=== PATIENT | male | born 1970 | race Caucasian/White ===

== ENCOUNTER 2020-05-27 11:11 | Day surgery (SDC) | payer OTHER ==
[2020-05-25 14:55] LABS: COVID AG,FIA SOURCE NASOPHARYNGEAL
[~2020-05-27 11:11] MED LIST: SODIUM CHLORIDE 0.9% 1,000 ML ONE
[2020-05-27] MEDS ORDERED: PROPOFOL 1% 20 ML VIAL IVP ONE (11:12)
[2020-05-27] MEDS ORDERED: SODIUM CHLORIDE 0.9% 1,000 ML IV ONE (11:30)
[2020-05-27] MEDS ORDERED: OXYGEN THERAPY IH SCH (20:00)
== END 2020-05-27 14:54 | disposition home or self-care (01) ==
LOC: SURGERY 11:11
PROVIDERS: ATTEND Specialist
DX: K62.6 Ulcer of anus and rectum (principal); K57.30 Diverticulosis of large intestine without perforation or abscess without bleeding; K29.50 Unspecified chronic gastritis without bleeding; D12.4 Benign neoplasm of descending colon; K63.89 Other specified diseases of intestine; K62.89 Other specified diseases of anus and rectum; K64.9 Unspecified hemorrhoids; K20.90 Esophagitis, unspecified without bleeding; K44.9 Diaphragmatic hernia without obstruction or gangrene; F17.210 Nicotine dependence, cigarettes, uncomplicated; K21.9 Gastro-esophageal reflux disease without esophagitis; J44.9 Chronic obstructive pulmonary disease, unspecified; G89.29 Other chronic pain; F43.10 Post-traumatic stress disorder, unspecified; Z98.890 Other specified postprocedural states; Z72.89 Other problems related to lifestyle; Z79.899 Other long term (current) drug therapy; F31.9 Bipolar disorder, unspecified
CPT/HCPCS: 45380; 43239; 87426; C1769; C9803; J2704; J7030; 88305; 88312; 88313

== ENCOUNTER 2021-09-22 16:53 | Inpatient (IN) | payer MEDICAID ==
[~2021-09-22] VITALS: Ht 188 cm; Wt 134.9 kg
[2021-09-22] MEDS ORDERED: ZOLPIDEM TARTRATE 10 MG TABLET PO PRN (22:30)
[2021-09-22] MEDS ORDERED: HALOPERIDOL 5 MG TABLET PO PRN (22:30)
[2021-09-22] MEDS ORDERED: PNEUMOCOCCAL VACCINE POLYVALENT 0.5 ML VIAL [PPSV23] IM. ONE (23:15)
[2021-09-23 00:28] VITALS: BP 130/87
[2021-09-23] MEDS: LORazepam 2 MG TABLET PO PRN (03:23)
[2021-09-23 07:18] LABS: HEMOGLOBIN A1C 5.9 % (3.8-5.6)
[2021-09-23 07:30] LABS: ALANINE AMINOTRANSFERASE 35 U/L (12-78); ALBUMIN 3.8 g/dL (3.4-5.0); ALKALINE PHOSPHATASE 103 U/L (46-116); ANION GAP 8 mmol/L (8-16); ASPARTATE AMINOTRANSFERASE 21 U/L (15-37); BILIRUBIN,TOTAL 0.4 mg/dL (0.1-1.0); CALCIUM, TOTAL 8.8 mg/dL (8.8-10.5); CARBON DIOXIDE 28 mmol/L (22-29); CHLORIDE 98 mmol/L (98-107); CHOL/HDL RATIO 4.9 (4.2-7.3); CHOLESTEROL 142 mg/dL (131-200); FREE T4 (FREE THYROXINE) 1.23 ng/dL (0.76-1.46); GLUCOSE,RANDOM 96 mg/dL (70-110); HDL CHOLESTEROL 29 mg/dL (40-60); LDL CHOL (CALC.) 78 mg/dL (0-130); POTASSIUM 3.8 mmol/L (3.5-5.1); SODIUM SERUM 134 mmol/L (136-145); THYROID STIMULATING HORMONE 1.56 uIU/mL (0.36-3.74); TOTAL PROTEIN, SERUM 7.3 g/dL (6.4-8.2); TRIGLYCERIDES 175 mg/dL (15-150); UREA NITROGEN, BLOOD 13 mg/dL (7-18)
[2021-09-23 07:33] LABS: BASOPHILS % (AUTO) 0.4 % (0.0-2.0); EOSINOPHILS % (AUTO) 2.8 % (1.0-6.0); HEMATOCRIT 44.1 % (41-53); LYMPHOCYTES # (AUTO) 1.3 K/uL (1.0-4.8); LYMPHOCYTES % (AUTO) 22.7 % (22.0-44.0); MEAN CORPUSCULAR HEMOGLOBIN 27.2 pg (26.0-34.0); MEAN CORPUSCULAR HGB CONC 33.9 G/dL (31.0-37.0); MEAN CORPUSCULAR VOLUME 80 fL (80-100); MONOCYTES # (AUTO) 0.8 K/uL (0.1-1.0); MONOCYTES % (AUTO) 13.5 % (2.0-9.0); NEUTROPHILS # (AUTO) 3.5 K/uL (1.8-7.7); NEUTROPHILS % (AUTO) 60.6 % (40.0-70.0); PLATELET COUNT (AUTO) 202 K/uL (150-450); RED BLOOD CELL COUNT(AUTO) 5.51 MIL/uL (4.50-5.90); RED CELL DISTRIBUTION WIDTH 15.9 % (11.5-14.5)
[2021-09-23 07:34] LABS: GLOMERULAR FILTR. RATE CALC > 60 mL/min (>60)
[2021-09-23 08:33] VITALS: BP 118/69
[2021-09-23] MEDS ORDERED: GuaiFENesin/D-METHORPHAN [SUGAR-FREE] 200-20MG/10 ML SYRUP UDCUP PO PRN (12:15)
[2021-09-23] MEDS ORDERED: PETROLATUM,WHITE 28 GM JELLY TP PRN (12:15)
[2021-09-23] MEDS ORDERED: LOPERAMIDE HCL 2 MG CAPSULE PO PRN (12:15)
[2021-09-23] MEDS ORDERED: IBUPROFEN 400 MG TABLET PO PRN (12:15)
[2021-09-23] MEDS ORDERED: ONDANSETRON HCL 4 MG TABLET PO PRN (12:15)
[2021-09-23] MEDS ORDERED: ALBUTEROL SULFATE HFA 90 MCG/PUFF 8 GM INHALER IH PRN (12:15)
[2021-09-23] MEDS ORDERED: CloNIDine HCL 0.1 MG TABLET PO PRN (12:15)
[2021-09-23] MEDS ORDERED: MAGNESIUM HYDROXIDE SUSPENSION 30 ML UDCUP PO PRN (12:15)
[2021-09-23] MEDS ORDERED: NICOTINE 14 MG/24 HOUR PATCH TD PRN (12:15)
[2021-09-23] MEDS ORDERED: DOCUSATE SODIUM 100 MG CAPSULE PO PRN (12:15)
[2021-09-23] MEDS ORDERED: MAG HYDROX/AL HYDROX/SIMETH ES 30 ML SUSPENSION UDCUP PO PRN (12:15)
[2021-09-23] MEDS ORDERED: ACETAMINOPHEN 325 MG TABLET PO PRN (12:15)
[2021-09-23] MEDS: BuPROPion HCL XL 150 MG ER TABLET PO SCH (12:37)
[2021-09-23] MEDS: QUEtiapine FUMARATE 25 MG TABLET PO SCH ×2 (12:37→17:20)
[2021-09-23] MEDS: GABAPENTIN 400 MG CAPSULE PO SCH ×3 (12:37→20:41)
[2021-09-23] MEDS: DULoxetine HCL 60 MG CAPSULE PO SCH (12:37)
[2021-09-23 20:44] VITALS: BP 125/79
[2021-09-23] MEDS ORDERED: QUEtiapine FUMARATE 200 MG TABLET PO SCH (21:00)
[2021-09-24] MEDS: LORazepam 2 MG TABLET PO PRN (05:11)
[2021-09-24] MEDS: DULoxetine HCL 60 MG CAPSULE PO SCH (10:04)
[2021-09-24] MEDS: GABAPENTIN 400 MG CAPSULE PO SCH ×2 (10:05→12:42)
[2021-09-24] MEDS: BuPROPion HCL XL 150 MG ER TABLET PO SCH (10:06)
[2021-09-24] MEDS: QUEtiapine FUMARATE 25 MG TABLET PO SCH ×2 (10:07→12:45)
[2021-09-24 10:08] VITALS: BP 123/61
[2021-09-24] MEDS ORDERED: GABA-1201 PO (11:01)
[2021-09-24] MEDS ORDERED: QUET200T30 PO (11:01)
[2021-09-24] MEDS ORDERED: QUET25TA36 PO (11:01)
[2021-09-24] MEDS ORDERED: BUPR-49 PO (11:01)
[2021-09-24] MEDS ORDERED: DULO-113 PO (11:01)
== END 2021-09-24 13:55 | disposition home or self-care (01) | DRG 750 ==
LOC: B2S 22:28
PROVIDERS: ADMIT Psychiatry & Neurology Child & Adolescent Psychiatry; ATTEND Psychiatry & Neurology Child & Adolescent Psychiatry
DX: F25.1 Schizoaffective disorder, depressive type (principal); E87.1 Hypo-osmolality and hyponatremia; F12.10 Cannabis abuse, uncomplicated; F41.9 Anxiety disorder, unspecified; J45.909 Unspecified asthma, uncomplicated; T50.992A Poisoning by other drugs, medicaments and biological substances, intentional self-harm, initial encounter; M47.9 Spondylosis, unspecified; Z87.11 Personal history of peptic ulcer disease; Z91.19 Patient's noncompliance with other medical treatment and regimen; Z28.21 Immunization not carried out because of patient refusal; Z71.51 Drug abuse counseling and surveillance of drug abuser; Y92.098 Other place in other non-institutional residence as the place of occurrence of the external cause
CPT/HCPCS: 80053; 80061; 83036; 84439; 84443; 85025